=== PATIENT | female | born 1955 | race Caucasian/White ===

== ENCOUNTER 2017-12-25 22:50 | Observation (INO) ==
[2017-12-25] MEDS ORDERED: 0.9 % Sodium Chloride 1,000 ML IVC SCH (23:45)
[2017-12-26 00:05] LABS: Bilirubin,Urine Negative (Negative); Blood,Urine Trace (Negative); Clarity,Urine Clear (Clear); Color,Urine Yellow (Yellow); Glucose,Urine (UA) Normal (Normal); Ketones,Urine Negative (Negative); Leukocyte Esterase,Urine Negative (Negative); Nitrite,Urine Negative (Negative); PH,Urine 7.5 pH Units (5.0-8.0); Protein,Urine 100 mg/dL (Neg-Trace); Specific Gravity,Urine 1.017 (1.010-1.025); Urobilinogen,Urine Normal (Normal)
[2017-12-26 00:08] LABS: Hyaline Casts,Urine None Seen per lpf (None-Few); Squamous Epithelial Cell,Urine Many per lpf (None-Few); WBC,Urine 0-3 per hpf (0-3)
[2017-12-26 00:08] LABS: Hemoglobin 15.4 g/dL (11.5-15.4); Segmented Neutrophils % 66.2 %
[2017-12-26 00:09] LABS: Basophils % 0.4 %; Eosinophils % 0.7 %; Immature Granulocytes % 1.2 % (0-4); Lymphocytes % 22.3 %; Monocytes % 9.2 %
[2017-12-26 00:21] LABS: Bacteria,Urine Few per hpf (None-Few); RBC,Urine 0-3 per hpf (0-3)
[2017-12-26 00:21] LABS: Albumin 4.3 g/dL (3.5-5.7); Albumin/Globulin Ratio 1.3 (1.1-2.2); Bilirubin,Direct 0.1 mg/dL (0.0-0.2); Bilirubin,Indirect 0.2 mg/dL (0.0-1.2); Bilirubin,Total 0.3 mg/dL (0.3-1.0); Calcium 9.8 mg/dL (8.6-10.3); Globulin 3.3 g/dL (2.4-3.5); Potassium 3.5 mEq/L (3.5-5.1); Total Protein 7.6 g/dL (6.4-8.9)
[2017-12-26 00:32] LABS: Basophils # 0.1 K/mcL (0.0-0.2); Eosinophils # 0.1 K/mcL (0.0-0.6); Hematocrit 45.5 % (35.3-44.9); Lymphocytes # 4.5 K/mcL (0.6-4.6); Mean Corpuscular HGB Conc 33.8 g/dL (31.6-35.5); Mean Corpuscular Hemoglobin 30.3 pg (28.0-33.3); Mean Corpuscular Volume 89.6 fL (83.0-100.0); Mean Platelet Volume 9.2 fL (9.4-12.4); Monocytes # 1.9 K/mcL (0.0-1.3); Neutrophils # 13.4 K/mcL (1.6-8.9); Platelet Count 378 K/mcL (140-400); Red Blood Count 5.08 M/mcL (3.82-4.97)
[2017-12-26] MEDS ORDERED: Ondansetron 4 MG/2 ML VIAL IVP ONE (00:51)
--- NOTE | 2017-12-26 00:51 | Emergency Department Note ---
Disposition Clinical Impression: Acute cholecystitis Disposition: Admitted As Inpatient Condition: Fair Time of Disposition: 04:54 Abdominal Pain HPI - General Chief Complaint: ED Abdominal Pain Stated Complaint: abdominal pain Time Seen by Provider: 12/25/17 23:47 Nursing Notes Reviewed: Yes Vital Signs Reviewed: Yes - History of Present Illness Pt Subjective Complaint: abdominal pain Onset (ago): day(s) Consistency: Worsening Location: diffuse Pain Scale: 8 Quality: other (heavy) Migration to: no migration Context: recent surgery/procedure (3 day s/p epidural injection for chronic back pain) Associated symptoms: Reports: nausea, vomiting, other (weakness). Denies: diarrhea, fever, chills, hematemesis, melena Treatments prior to arrival: none - Related Data Home Medications Medication Instructions Recorded Confirmed Albuterol Inhaler 1 puff AER DAILY 01/24/17 12/26/17 Effexor 300 mg PO DAILY 01/24/17 12/26/17 Gabapentin Enacarbil 800 mg PO TID 01/24/17 12/26/17 Allergies Allergy/AdvReac Type Severity Reaction Status Date / Time phenobarbital Allergy See Verified 06/22/17 19:16 Comments Thiopental Allergy See Verified 01/19/16 14:04 Comments codeine AdvReac Itching Verified 05/10/17 19:24 [From Tylenol-Codeine #3] Cortisone AdvReac See Verified 12/01/15 15:12 Comments All systems ED: reviewed and negative except as stated. Review of Systems: As Per HPI Constitutional: Denies: fever, chills, weakness Eyes: Denies: vision change ENT ED: Denies: throat pain Cardiovascular: Denies: palpitations Respiratory: Denies: cough, dyspnea Gastrointestinal: Reports: as per HPI Genitourinary: Denies: dysuria Musculoskeletal: Denies: back pain, neck pain Integumentary: Denies: rash Neurological: Reports: weakness. Denies: headache, numbness Psychiatric: Denies: anxiety Endocrine: Denies: fatigue Hematological/Lymphatic: Denies: easy bleeding Allergic/Immunologic: Denies: facial swelling Abdominal Pain PMH - Past Medical History Medical history: Reports: COPD, GERD, other Female Surgical History: Reports: hysterectomy PATIENT CARE MANAGER history: Reports: no PATIENT CARE MANAGER history Psychiatric history: Reports: anxiety, depression - Social History Smoking status: Current every day smoker Alcohol use: Reports: none Drug use: Reports: prescription drug abuse Physical Exam - General General appearance: alert Course Course Narrative: 62-year-old female presents with abdominal pain nausea vomiting, and what she describes as weakness. She also mentions she has fallen 3 times today. She is a patient Dr. Perry's whom she had seen 3 days ago for a spinal injection of steroids and anesthesia. She denies any known complications, and states that her back pain is much improved, and denies any concerns for her back at this point. However today she started having abdominal pain nausea and vomiting. She describes weakness and tells me she had actually fallen three times. Her blood pressure was low at triage assessment and on reassessment in her exam rooms. She mentions her medications are gabapentin, Effexor ibuprofen, reflux medication, and doxepin and denies any additional paid medications.or blood pressure medications. She denies any bowel or bladder symptoms. PSHx totaly hysterectomy. Patient seen and examined. she is alert and oriented, mild diffuse abdominal pain. Workup ordered. Pt declines analgesics - Reevaluation(s) Reevaluation #1: Fluids are running. Pt BP at 77/60. Not tachycardic. Pt has elevated WBC as well. Lactic acid and blood cultures were taken with blood work. Will place 2nd line continue fluids. Patient discussed with Dr. Chou, who agreed to see patient, and agreed for CT scan Time: 00:55 Reevaluation #2: CT findings show thickened GB wall and sludge, and hepatomegaly. Per radiologist impression likely not cholecystitis, but recommendations to correlate clinically. On repeat examination patient does have diffuse, tenderness, it is not localized to right upper quadrant, however she does complain of tenderness with right upper quadrant palpation. Reviewed CT results , with Dr. Chou who also had face time with patient. We will plan for formal right upper quadrant ultrasound, and admission for weakness, hypotension , and possible cholecystitis. IV abx ordered. Time: 02:41 Reevaluation #3: Formal gallbladder ultrasound findings consistent with acute cholecystitis. call center manager surgery paged. Time: 04:35 - Consultations Consultation #1: Patient discussed with on-call surgeon Dr. Murphy, who agreed to accept patient to her service. Time: 04:43 Vital Signs Temperature 98.3 F 12/25/17 22:54 Pulse Rate 95 12/25/17 22:54 Respiratory Rate 18 12/25/17 22:54 Blood Pressure 82/56 12/25/17 22:54 O2 Sat by Pulse Oximetry 98 12/25/17 22:54 Temperature 98.3 F 12/25/17 22:54 Pulse Rate 72 12/26/17 05:06 Respiratory Rate 18 12/26/17 05:06 Blood Pressure 97/52 12/26/17 05:06 O2 Sat by Pulse Oximetry 95 12/26/17 05:06 Oxygen Delivery Oxygen Delivery Nasal Cannula Abdominal Pain - [facility] Narrative Medical decision making narrative: Patient is a 62-year-old female that presented with abdominal pain and weakness , and what she describes as Falls due to weakness. She denies any loss of consciousness, or injuries from a fall. She does describe a history of chronic back pain, is followed by pain management. She had a epidural injection 3 days ago, but states that her back pain has improved, and denies any concern for that. Evaluation and workup of her abdominal pain, including abdominal pelvis CT without contrast, and gallbladder ultrasound were consistent with acute cholecystitis. Initially she had elevated white blood cell count, and was hypotensive. Her initial heart rate was 95. She did meet severe sepsis criteria and had received fluids and IV antibiotics. She did have a elevated lactic acid. Her heart rate blood pressure and lactic acid did improve after fluids. Blood cultures were required as well. Chest x-ray showed minimal left basilar airspace opacities, favored to represent atelectasis over pneumonia. Additionally patient denies any cough, shortness of breath, or chest pain.Patient was discussed with and accepted by precision grinder surgeon Dr. Murphy. She did respond well to fluids and her blood pressure had improved. She declined analgesics here. I did discuss patient with Dr. Chou who also had face time with patient and agreed with workup evaluation and disposition. Chest X-Ray 12/26/17 00:56 IMPRESSION: Minimal left basilar airspace opacities are favored to represent atelectasis over pneumonia. D/ / Sammy Alas MD / Sammy Alas MD Interpreting Provider: Sammy Alas MD Abdomen/Pelvis CT 12/26/17 01:01 IMPRESSION: Gallbladder wall edema and biliary sludge. Findings are unlikely to represent acute cholecystitis, though correlate for right upper quadrant tenderness. Mild hepatic steatosis. D/ / Sammy Alas MD / Sammy Alas MD Interpreting Provider: Sammy Alas MD Gallbladder Ultrasound 12/26/17 02:39 IMPRESSION: Cholelithiasis. Gallbladder wall thickening, trace pericholecystic fluid and positive sonographic Tyson sign consistent with acute cholecystitis. D/ / Nathan Shaw MD / Nathan Shaw MD Interpreting Provider: Nathan Shaw MD Laboratory Tests 12/25/17 12/25/17 12/25/17 23:24 23:24 23:45 WBC 20.2 H RBC 5.08 H Hgb 15.4 Hct 45.5 H MCV 89.6 MCH 30.3 MCHC 33.8 RDW 14.0 Plt Count 378 MPV 9.2 L Immature Gran % 1.2 Seg Neutrophils % 66.2 Lymphocytes % 22.3 Monocytes % 9.2 Eosinophils % 0.7 Basophils % 0.4 Neutrophils # 13.4 H Lymphocytes # 4.5 Monocytes # 1.9 H Eosinophils # 0.1 Basophils # 0.1 Sodium 127 L Potassium 3.5 Chloride 90 L Carbon Dioxide 24 BUN 13 Creatinine 1.24 H Est GFR ( Amer) 53 L Est GFR (Non-Af Amer) 44 L BUN/Creatinine Ratio 10 Glucose 117 H Calculated Osmolality 265 L Lactic Acid Calcium 9.8 Total Bilirubin 0.3 Direct Bilirubin 0.1 Indirect Bilirubin 0.2 AST 27 ALT 29 Alkaline Phosphatase 145 H Serum Total Protein 7.6 Albumin 4.3 Globulin 3.3 Albumin/Globulin Ratio 1.3 Amylase 29 Lipase 14 Urine Color Yellow Urine Clarity Clear Urine pH 7.5 Ur Specific [place] 1.017 Urine Protein 100 H Urine Glucose (UA) Normal Urine Ketones Negative Urine Blood Trace H Urine Nitrite Negative Urine Bilirubin Negative Urine Urobilinogen Normal Ur Leukocyte Esterase Negative Urine Microscopic RBC 0-3 Urine Microscopic WBC 0-3 Ur Squamous Epith Cells Many H Urine Bacteria Few Hyaline Casts None Seen 12/26/17 12/26/17 00:31 04:23 WBC RBC Hgb Hct MCV MCH MCHC RDW Plt Count MPV Immature Gran % Seg Neutrophils % Lymphocytes % Monocytes % Eosinophils % Basophils % Neutrophils # Lymphocytes # Monocytes # Eosinophils # Basophils # Sodium Potassium Chloride Carbon Dioxide BUN Creatinine Est GFR ( Amer) Est GFR (Non-Af Amer) BUN/Creatinine Ratio Glucose Calculated Osmolality Lactic Acid 2.6 H 1.5 Calcium Total Bilirubin Direct Bilirubin Indirect Bilirubin AST ALT Alkaline Phosphatase Serum Total Protein Albumin Globulin Albumin/Globulin Ratio Amylase Lipase Urine Color Urine Clarity Urine pH Ur Specific [place] Urine Protein Urine Glucose (UA) Urine Ketones Urine Blood Urine Nitrite Urine Bilirubin Urine Urobilinogen Ur Leukocyte Esterase Urine Microscopic RBC Urine Microscopic WBC Ur Squamous Epith Cells Urine Bacteria Hyaline Casts - Lab Data Lab results reviewed: Yes I reviewed the patient's lab results. Result diagrams: 12/25/17 23:24 12/25/17 23:24 Lab Results 12/25/17 12/25/17 12/25/17 Range/Units 23:24 23:24 23:45 WBC 20.2 H (4.3-11.1) K/mcL RBC 5.08 H (3.82-4.97) M/mcL Hgb 15.4 (11.5-15.4) g/dL Hct 45.5 H (35.3-44.9) % MCV 89.6 (83.0-100.0) fL MCH 30.3 (28.0-33.3) pg MCHC 33.8 (31.6-35.5) g/dL RDW 14.0 (11.5-14.5) % Plt Count 378 (140-400) K/mcL MPV 9.2 L (9.4-12.4) fL Immature Gran % 1.2 (0-4) % Seg Neutrophils % 66.2 % Lymphocytes % 22.3 % Monocytes % 9.2 % Eosinophils % 0.7 % Basophils % 0.4 % Neutrophils # 13.4 H (1.6-8.9) K/mcL Lymphocytes # 4.5 (0.6-4.6) K/mcL Monocytes # 1.9 H (0.0-1.3) K/mcL Eosinophils # 0.1 (0.0-0.6) K/mcL Basophils # 0.1 (0.0-0.2) K/mcL Sodium 127 L (136-145) mEq/L Potassium 3.5 (3.5-5.1) mEq/L Chloride 90 L (98-107) mEq/L Carbon Dioxide 24 (23-29) mEq/L BUN 13 (8-23) mg/dL Creatinine 1.24 H (0.60-1.20) mg/dL Est GFR ( Amer) 53 L (> 60) Est GFR (Non-Af Amer) 44 L (> 60) BUN/Creatinine Ratio 10 (6-26) Glucose 117 H (70-105) mg/dL Calculated Osmolality 265 L (280-300) Lactic Acid (0.5-2.2) mmol/L Calcium 9.8 (8.6-10.3) mg/dL Total Bilirubin 0.3 (0.3-1.0) mg/dL Direct Bilirubin 0.1 (0.0-0.2) mg/dL Indirect Bilirubin 0.2 (0.0-1.2) mg/dL AST 27 (13-39) Units/L ALT 29 (7-52) Units/L Alkaline Phosphatase 145 H (34-104) Units/L Serum Total Protein 7.6 (6.4-8.9) g/dL Albumin 4.3 (3.5-5.7) g/dL Globulin 3.3 (2.4-3.5) g/dL Albumin/Globulin Ratio 1.3 (1.1-2.2) Amylase 29 (29-103) Units/L Lipase 14 (11-82) Units/L Urine Color Yellow (Yellow) Urine Clarity Clear (Clear) Urine pH 7.5 (5.0-8.0) pH Units Ur Specific [place] 1.017 (1.010-1.025) Urine Protein 100 H (Neg-Trace) mg/dL Urine Glucose (UA) Normal (Normal) mg/dL Urine Ketones Negative (Negative) mg/dL Urine Blood Trace H (Negative) Urine Nitrite Negative (Negative) Urine Bilirubin Negative (Negative) Urine Urobilinogen Normal (Normal) mg/dL Ur Leukocyte Esterase Negative (Negative) Urine Microscopic RBC 0-3 (0-3) per hpf Urine Microscopic WBC 0-3 (0-3) per hpf Ur Squamous Epith Cells Many H (None-Few) per lpf Urine Bacteria Few (None-Few) per hpf Hyaline Casts None Seen (None-Few) per lpf 12/26/17 12/26/17 Range/Units 00:31 04:23 WBC (4.3-11.1) K/mcL RBC (3.82-4.97) M/mcL Hgb (11.5-15.4) g/dL Hct (35.3-44.9) % MCV (83.0-100.0) fL MCH (28.0-33.3) pg MCHC (31.6-35.5) g/dL RDW (11.5-14.5) % Plt Count (140-400) K/mcL MPV (9.4-12.4) fL Immature Gran % (0-4) % Seg Neutrophils % % Lymphocytes % % Monocytes % % Eosinophils % % Basophils % % Neutrophils # (1.6-8.9) K/mcL Lymphocytes # (0.6-4.6) K/mcL Monocytes # (0.0-1.3) K/mcL Eosinophils # (0.0-0.6) K/mcL Basophils # (0.0-0.2) K/mcL Sodium (136-145) mEq/L Potassium (3.5-5.1) mEq/L Chloride (98-107) mEq/L Carbon Dioxide (23-29) mEq/L BUN (8-23) mg/dL Creatinine (0.60-1.20) mg/dL Est GFR ( Amer) (> 60) Est GFR (Non-Af Amer) (> 60) BUN/Creatinine Ratio (6-26) Glucose (70-105) mg/dL Calculated Osmolality (280-300) Lactic Acid 2.6 H 1.5 (0.5-2.2) mmol/L Calcium (8.6-10.3) mg/dL Total Bilirubin (0.3-1.0) mg/dL Direct Bilirubin (0.0-0.2) mg/dL Indirect Bilirubin (0.0-1.2) mg/dL AST (13-39) Units/L ALT (7-52) Units/L Alkaline Phosphatase (34-104) Units/L Serum Total Protein (6.4-8.9) g/dL Albumin (3.5-5.7) g/dL Globulin (2.4-3.5) g/dL Albumin/Globulin Ratio (1.1-2.2) Amylase (29-103) Units/L Lipase (11-82) Units/L Urine Color (Yellow) Urine Clarity (Clear) Urine pH (5.0-8.0) pH Units Ur Specific [place] (1.010-1.025) Urine Protein (Neg-Trace) mg/dL Urine Glucose (UA) (Normal) mg/dL Urine Ketones (Negative) mg/dL Urine Blood (Negative) Urine Nitrite (Negative) Urine Bilirubin (Negative) Urine Urobilinogen (Normal) mg/dL Ur Leukocyte Esterase (Negative) Urine Microscopic RBC (0-3) per hpf Urine Microscopic WBC (0-3) per hpf Ur Squamous Epith Cells (None-Few) per lpf Urine Bacteria (None-Few) per hpf Hyaline Casts (None-Few) per lpf - Radiology Data Radiology results reviewed: Yes I reviewed the patient's radiology results. - EKG Data EKG attestation: Yes I reviewed and interpreted this EKG. EKG results narrative: Sinus rhythm ventricular rate 86, AL interval 143 QRS duration 81 daily OTC 429 over 472, no evidence of ischemic changes.
[2017-12-26] MEDS ORDERED: Piperacillin/Tazobactam 3.375 GM in 0.9 % Sodium Chloride Mini Bag 100 ML IVPB ONE (02:41)
--- NOTE | 2017-12-26 03:12 | Emergency Department Note ---
Disposition Clinical Impression: Acute cholecystitis Disposition: Admitted As Inpatient Condition: Good Referrals: Martniez Chandler MD [Primary Care Provider] - Forms: ED Satisfaction Letter, Work/School Release General Adult HPI - General Chief complaint: ED Abdominal Pain Stated complaint: abdominal pain Time Seen by Provider: 12/25/17 23:47 Nursing Notes Reviewed: Yes Vital Signs Reviewed: Yes - History of Present Illness Pain Scale: 8 Associated symptoms: Reports: loss of appetite, nausea/vomiting, weakness Treatments Prior to Arrival: none - Related Data Home Medications Medication Instructions Recorded Confirmed Albuterol Inhaler 01/24/17 Effexor 01/24/17 Fish Oil 01/24/17 Folbee Tablet 01/24/17 Gabapentin Enacarbil 01/24/17 Premarin 01/24/17 Protonix 01/24/17 Suboxone 8 mg-2 mg Sl Film 01/24/17 Tricor 01/24/17 Vitamin D 01/24/17 Previous Rx's Medication Instructions Recorded Cyclobenzaprine [Flexeril] 10 mg PO TID PRN #20 tablet 12/01/15 Meloxicam [Mobic] 7.5 mg PO DAILY PRN #30 tablet 12/01/15 Ibuprofen [Motrin] 600 mg PO Q8HR PRN #20 tab 10/16/16 DiphenhydraMINE [Benadryl] 25 mg PO Q8HR PRN #20 capsule 01/24/17 Loperamide HCl [Imodium A-D] 2 mg PO TID PRN #20 capsule 01/24/17 methylPREDNISolone [Medrol] 4 mg PO TAPER #21 tablet 01/24/17 HYDROcodone/Acet 10/325 mg [[place] 1 tab PO Q6HR PRN #12 tab 05/10/17 10-325 mg] Naproxen [Naprosyn] 500 mg PO BID PRN #10 tablet 06/22/17 Allergies Allergy/AdvReac Type Severity Reaction Status Date / Time phenobarbital Allergy See Verified 06/22/17 19:16 Comments Thiopental Allergy See Verified 01/19/16 14:04 Comments codeine AdvReac Itching Verified 05/10/17 19:24 [From Tylenol-Codeine #3] Cortisone AdvReac See Verified 12/01/15 15:12 Comments Constitutional: Denies: fever, chills, weakness Eyes: Denies: vision change ENT ED: Denies: throat pain Cardiovascular: Denies: palpitations Respiratory: Denies: cough, dyspnea Gastrointestinal: Reports: as per HPI Genitourinary: Denies: dysuria Musculoskeletal: Denies: back pain, neck pain Integumentary: Denies: rash Neurological: Reports: weakness. Denies: headache, numbness Psychiatric: Denies: anxiety Endocrine: Denies: fatigue Hematological/Lymphatic: Denies: easy bleeding Allergic/Immunologic: Denies: facial swelling Past Medical History - Past Medical History Medical history: Reports: COPD, GERD, other Surgical history: Reports: hysterectomy Psychiatric history: Reports: anxiety, depression LUMBER INSPECTOR history: Reports: no LUMBER INSPECTOR history - Social History Smoking Status: Current every day smoker Smokeless Tobacco Status: No Alcohol use: Reports: none Drug use: Reports: prescription drug abuse Physical Exam - General General appearance: alert Course Vital Signs Temperature 98.3 F 12/25/17 22:54 Pulse Rate 95 12/25/17 22:54 Respiratory Rate 18 12/25/17 22:54 Blood Pressure 82/56 12/25/17 22:54 O2 Sat by Pulse Oximetry 98 12/25/17 22:54 Temperature 98.3 F 12/25/17 22:54 Pulse Rate 73 12/26/17 04:42 Respiratory Rate 12 12/26/17 04:42 Blood Pressure 102/57 12/26/17 04:42 O2 Sat by Pulse Oximetry 91 12/26/17 04:42 Oxygen Delivery Oxygen Delivery Room Air Medical Decision Making - Lab Data Result diagrams: 12/25/17 23:24 12/25/17 23:24 Lab Results 12/25/17 12/25/17 12/25/17 Range/Units 23:24 23:24 23:45 WBC 20.2 H (4.3-11.1) K/mcL RBC 5.08 H (3.82-4.97) M/mcL Hgb 15.4 (11.5-15.4) g/dL Hct 45.5 H (35.3-44.9) % MCV 89.6 (83.0-100.0) fL MCH 30.3 (28.0-33.3) pg MCHC 33.8 (31.6-35.5) g/dL RDW 14.0 (11.5-14.5) % Plt Count 378 (140-400) K/mcL MPV 9.2 L (9.4-12.4) fL Immature Gran % 1.2 (0-4) % Seg Neutrophils % 66.2 % Lymphocytes % 22.3 % Monocytes % 9.2 % Eosinophils % 0.7 % Basophils % 0.4 % Neutrophils # 13.4 H (1.6-8.9) K/mcL Lymphocytes # 4.5 (0.6-4.6) K/mcL Monocytes # 1.9 H (0.0-1.3) K/mcL Eosinophils # 0.1 (0.0-0.6) K/mcL Basophils # 0.1 (0.0-0.2) K/mcL Sodium 127 L (136-145) mEq/L Potassium 3.5 (3.5-5.1) mEq/L Chloride 90 L (98-107) mEq/L Carbon Dioxide 24 (23-29) mEq/L BUN 13 (8-23) mg/dL Creatinine 1.24 H (0.60-1.20) mg/dL Est GFR ( Amer) 53 L (> 60) Est GFR (Non-Af Amer) 44 L (> 60) BUN/Creatinine Ratio 10 (6-26) Glucose 117 H (70-105) mg/dL Calculated Osmolality 265 L (280-300) Lactic Acid (0.5-2.2) mmol/L Calcium 9.8 (8.6-10.3) mg/dL Total Bilirubin 0.3 (0.3-1.0) mg/dL Direct Bilirubin 0.1 (0.0-0.2) mg/dL Indirect Bilirubin 0.2 (0.0-1.2) mg/dL AST 27 (13-39) Units/L ALT 29 (7-52) Units/L Alkaline Phosphatase 145 H (34-104) Units/L Serum Total Protein 7.6 (6.4-8.9) g/dL Albumin 4.3 (3.5-5.7) g/dL Globulin 3.3 (2.4-3.5) g/dL Albumin/Globulin Ratio 1.3 (1.1-2.2) Amylase 29 (29-103) Units/L Lipase 14 (11-82) Units/L Urine Color Yellow (Yellow) Urine Clarity Clear (Clear) Urine pH 7.5 (5.0-8.0) pH Units Ur Specific [place] 1.017 (1.010-1.025) Urine Protein 100 H (Neg-Trace) mg/dL Urine Glucose (UA) Normal (Normal) mg/dL Urine Ketones Negative (Negative) mg/dL Urine Blood Trace H (Negative) Urine Nitrite Negative (Negative) Urine Bilirubin Negative (Negative) Urine Urobilinogen Normal (Normal) mg/dL Ur Leukocyte Esterase Negative (Negative) Urine Microscopic RBC 0-3 (0-3) per hpf Urine Microscopic WBC 0-3 (0-3) per hpf Ur Squamous Epith Cells Many H (None-Few) per lpf Urine Bacteria Few (None-Few) per hpf Hyaline Casts None Seen (None-Few) per lpf 12/26/17 12/26/17 Range/Units 00:31 04:23 WBC (4.3-11.1) K/mcL RBC (3.82-4.97) M/mcL Hgb (11.5-15.4) g/dL Hct (35.3-44.9) % MCV (83.0-100.0) fL MCH (28.0-33.3) pg MCHC (31.6-35.5) g/dL RDW (11.5-14.5) % Plt Count (140-400) K/mcL MPV (9.4-12.4) fL Immature Gran % (0-4) % Seg Neutrophils % % Lymphocytes % % Monocytes % % Eosinophils % % Basophils % % Neutrophils # (1.6-8.9) K/mcL Lymphocytes # (0.6-4.6) K/mcL Monocytes # (0.0-1.3) K/mcL Eosinophils # (0.0-0.6) K/mcL Basophils # (0.0-0.2) K/mcL Sodium (136-145) mEq/L Potassium (3.5-5.1) mEq/L Chloride (98-107) mEq/L Carbon Dioxide (23-29) mEq/L BUN (8-23) mg/dL Creatinine (0.60-1.20) mg/dL Est GFR ( Amer) (> 60) Est GFR (Non-Af Amer) (> 60) BUN/Creatinine Ratio (6-26) Glucose (70-105) mg/dL Calculated Osmolality (280-300) Lactic Acid 2.6 H 1.5 (0.5-2.2) mmol/L Calcium (8.6-10.3) mg/dL Total Bilirubin (0.3-1.0) mg/dL Direct Bilirubin (0.0-0.2) mg/dL Indirect Bilirubin (0.0-1.2) mg/dL AST (13-39) Units/L ALT (7-52) Units/L Alkaline Phosphatase (34-104) Units/L Serum Total Protein (6.4-8.9) g/dL Albumin (3.5-5.7) g/dL Globulin (2.4-3.5) g/dL Albumin/Globulin Ratio (1.1-2.2) Amylase (29-103) Units/L Lipase (11-82) Units/L Urine Color (Yellow) Urine Clarity (Clear) Urine pH (5.0-8.0) pH Units Ur Specific [place] (1.010-1.025) Urine Protein (Neg-Trace) mg/dL Urine Glucose (UA) (Normal) mg/dL Urine Ketones (Negative) mg/dL Urine Blood (Negative) Urine Nitrite (Negative) Urine Bilirubin (Negative) Urine Urobilinogen (Normal) mg/dL Ur Leukocyte Esterase (Negative) Urine Microscopic RBC (0-3) per hpf Urine Microscopic WBC (0-3) per hpf Ur Squamous Epith Cells (None-Few) per lpf Urine Bacteria (None-Few) per hpf Hyaline Casts (None-Few) per lpf Attestation Statement - Attestation Attestation: I, Kane Chou MD, personally evaluated this patient and discussed their management with the midlevel provicer, PAC/FUEL QUALITY TECH. I reviewed the midlevel provider 's note and agree with the documented findings, medical decision making, and plan of care. 62-year-old female presents to the emergency department with a complaint of lower abdominal pain for about 24 hours prior to arrival. She states she had a lot of nausea and vomiting for about 12 hours. This seems better since about 2 PM today. No fever. No diarrhea. She had a normal bowel movement today. No melena, hematemesis, or hematochezia. No hematuria or dysuria or flank pain. Patient hypotensive on arrival but not tachycardic. No back pain. On examination patient is a well-developed well-nourished female in no acute distress. She is alert and oriented 3. There is no cyanosis or diaphoresis. Sounds are clear and equal bilaterally. Heart regular rate and rhythm. Abdomen is soft with moderate diffuse lower abdominal tenderness and mild upper abdominal tenderness. Negative Tyson's sign. Mild lower abdominal guarding. No CVA tenderness. Labs reviewed. WBC 20.2. Sodium 127. Lactic acid 2.6. Chest x-ray shows m inimal left basilar airspace opacities are favored to represent atelectasis over pneumonia. CT of the abdomen and pelvis showed gallbladder sludge and some edema of the gallbladder wall. Gallbladder ultrasound shows cholelithiasis. Gallbladder wall thickening, trace pericholecystic fluid and positive sonographic Tyson sign consistent with acute cholecystitis. The surgeon chief telephone operator, Dr. Murphy, was consulted and accepted admission of the patient to her service.
[2017-12-26] MEDS ORDERED: 0.9 % Sodium Chloride 1,000 ML IVC ONE (04:42)
[2017-12-26 05:07] VITALS: BP 97/52
--- NOTE | 2017-12-26 05:55 | Event Note ---
Date of Encounter: 12/26/17 Time of Encounter: 05:50 (patient was never seen by myself) The ED physician call me regarding this patient overnight. He stated she came in with RUQ pain, hypotension. CT scan abdomen and pelvis was done showing biliary sludge, gallbladder wall thickening concerning for acute cholecystisis. US gallbladder was done showing same and dilated CBD at 8.7mm. WBC elevated at 20.2, hyponatremia, and acute kidney injury. SHe was given IVF and antibiotics, zosyn, in ER. I accepted the patient for admission. The floor nurse called me once the patient presented to the floor and stated the patient wanted to leave AMA because she wanted to smoke. The nurse informed me she reiterated [facility]'s no smoking policy and policy regarding patients leaving the floor and offered patient a nicotine patch. Patient refused and stated she was leaving AMA. The AMA form was filled out by the floor nurse with risks of leaving noted to be gangrenous cholecystitis, gallbladder perforation, sepsis, . I have never seen the patient nor examined her.
--- NOTE | 2017-12-27 15:54 | Electrocardiograph Report ---
[place] [id number] Test Date: 2017-12-25 Pat Name: Blank Poole Department: 102 Room: [facility] Gender: F Card Puncher: Osmany : 1955 Requested By: Aaron Vargas Order Number: [id number] Reading MD: Marianne Shay Measurements Intervals Roland Rate: 86 P: 20 NE: 143 QRS: 24 QRSD: 81 T: 49 QT: 429 QTc: 472 Interpretive Statements SINUS RHYTHM POSSIBLE RIGHT VENTRICULAR CONDUCTION DELAY [RSR (QR) IN V1/V2] SEPTAL MYOCARDIAL INFARCTION [40+ ms Q WAVE IN V1/V2], OF INDETERMINATE AGE Electronically Signed On 12-27-2017 15:52:53 EDT by Marianne Shay
== END 2017-12-26 05:45 | disposition left against medical advice (07) ==
LOC: EMEROO 22:50 → 3NENU 12-26 04:56 → INTOOBSV 12-26 04:56 → 3NENU 12-26 05:18
PROVIDERS: ADMIT Surgery; ATTEND Surgery